=== PATIENT | female | born 1990 | race Caucasian/White ===

== ENCOUNTER 2022-12-07 21:22 | Emergency (ER) | payer MEDICAID ==
[~2022-12-07] VITALS: Ht 175.3 cm; Wt 90.0 kg
[2022-12-07 21:37] VITALS: BP 125/60
[2022-12-08] MEDS ORDERED: ketorolac tromethamine 15mg/ml inj. IM ONE (00:10)
[2022-12-08] MEDS ORDERED: LIDO1ADH67 TOP (00:53)
[2022-12-08] MEDS ORDERED: CYCL-1 PO (00:53)
[2022-12-08] MEDS ORDERED: NAPR-56 PO (00:55)
[2022-12-08] MEDS ORDERED: cyclobenzaprine 10mg tablet PO ONE (00:55)
== END 2022-12-08 01:04 | disposition home or self-care (01) ==
LOC: ER 21:22
DX: S39.012A Strain of muscle, fascia and tendon of lower back, initial encounter (principal); X58.XXXA Exposure to other specified factors, initial encounter; Y93.89 Activity, other specified; Y92.89 Other specified places as the place of occurrence of the external cause; Y99.8 Other external cause status
CPT/HCPCS: 72110; 96372; 99283; J1885